=== PATIENT | female | born 1930 | race Caucasian/White ===

== ENCOUNTER → 2016-07-07 | Outpatient (CLI) | payer MEDICARE ==
[~2016-07-07] MED LIST: ASPI-860 PO; CALC500T55 PO; CYAN250T PO; DILT180T9 PO; EST45C VG; LACT1CAP8 PO; OMG1KC PO; TIMO5DRO26 OP; ZINC50TA31 PO; methylPREDNISolone 80 MG/ML (DEPO MEDROL) VIAL IM ONE
--- NOTE | 2016-07-07 13:30 | PAIN MANAGEMENT ---
Date of note: 07/07/2016 Procedure: Epidural steroid injection with fluoroscopic guidance Total fluoroscopic exposure time: 23 seconds This is an 85-year-old patient of Dr. Jatin Alfredo. The patient presents with a longstanding history of chronic back pain. She has spinal stenosis. Today she is presenting with pain in the right leg in the dermatome level of L5, primarily. Informed consent was achieved for an epidural steroid injection at L5-S1 under fluoroscopy. Orders for procedure verified. Patient denies any bleeding tendencies. After informed consent obtained, the patient was positioned for the lumbar epidural steroid injection under fluoroscopy. The area was prepped and draped using aseptic technique. The skin and overlying tissues were localized using 3 mL of 1% Preservative-Free lidocaine using a 25-gauge 1.5-inch needle. A 20-gauge Tuohy needle was advanced, using "loss of resistance" technique, to the epidural space. No blood, cerebral spinal fluid, pain, or paresthesia noted on entry of the epidural space. A 1 mL solution of Depo-Medrol 80 mg was injected slowly without mass volume effect. The patient was placed in supine position 15 minutes prior to being released with proper leg strength and vitals. Pre- and post procedure vital signs stable with no sensory or motor deficit noted. Instruction on followup contact and care provided to the patient.
--- NOTE | 2016-07-07 15:01 | Diagnostic Imaging Report ---
EXAMINATION: DIG KATIE BILAT SCREEN W CAD. COMPARISON: 05/26/2015, 05/17/2014, and 05/02/2013. INDICATION: Screening mammography. TECHNIQUE: Digital screening mammography was obtained with a computer-aided detection (CAD) system. FINDINGS: There are scattered fibroglandular densities. Stable postoperative changes in the medial and upper left breast from lumpectomy. Associated architectural distortion and numerous surgical clips are present at the surgical site. No increased size of the scar to suggest local recurrence. No new dominant mass, suspicious microcalcifications, or architectural distortion on either side to suggest malignancy. IMPRESSION: Stable mammogram without evidence of malignancy. Followup screening mammogram in 12 months is recommended. ACR BI-RADS Category 2: Benign findings. Result letter will be mailed to the patient. Note: At least 10% of breast cancer is not imaged by mammography. Dictated by: Dictated on workstation # [id number]
== END ==
LOC: RAD 08:53
PROVIDERS: ATTEND Family Medicine
DX: M48.06 Spinal stenosis, lumbar region (principal); Z12.31 Encounter for screening mammogram for malignant neoplasm of breast
CPT/HCPCS: 62323; G0202; J1040